=== PATIENT | male | born 1965 | race Caucasian/White ===

== ENCOUNTER 2018-06-17 13:21 | Emergency (ER) | payer OTHER ==
[2018-06-17] MEDS ORDERED: Tetan/Diph/Pertus SYR(Tdap)* 0.5 ML SYR(BOOSTRIX) use SYR IM ONE (13:36)
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
[2018-06-17 13:46] VITALS: BP 110/58
--- NOTE | 2018-06-17 13:58 | RAD ---
Indication: Crush injury distal RIGHT fourth finger. Comparison: No relevant prior exams available on the [facility] for comparison. Technique: 3 views RIGHT fourth finger. REPORT AND IMPRESSION: #. Skin contour irregularity at the tip of the finger consistent with laceration. No conspicuous foreign body evident. Negative for fracture or articular malalignment.
[2018-06-17] MEDS ORDERED: Lidocaine 2% PF * 5 ML VIAL INJ ONE (14:10)
[2018-06-17] MEDS ORDERED: Bupivacaine 0.25% SDV* 30 ML INJ ONE (14:10)
== END 2018-06-17 15:24 | disposition home or self-care (01) ==
LOC: UCCORT 13:21
DX: S67.194A Crushing injury of right ring finger, initial encounter (principal); W31.89XA Contact with other specified machinery, initial encounter; Y93.89 Activity, other specified; Y92.69 Other specified industrial and construction area as the place of occurrence of the external cause; Y99.0 Civilian activity done for income or pay
CPT/HCPCS: 11042; 12001; 73140; 90471; 90715; 99211; G0463

== ENCOUNTER 2018-06-25 18:37 | Emergency (ER) | payer OTHER ==
[2018-06-25 19:02] VITALS: BP 112/61
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
== END 2018-06-25 20:48 | disposition home or self-care (01) ==
LOC: UCCORT 18:37
DX: S61.214D Laceration without foreign body of right ring finger without damage to nail, subsequent encounter (principal); Z85.038 Personal history of other malignant neoplasm of large intestine; Z85.048 Personal history of other malignant neoplasm of rectum, rectosigmoid junction, and anus; Z85.820 Personal history of malignant melanoma of skin

== ENCOUNTER 2019-02-15 20:30 | Emergency (ER) | payer OTHER ==
[2019-02-15 20:44] VITALS: BP 124/72
[2019-02-15] MEDS ORDERED: Amoxicillin/Clavulanate TAB* 875 MG PO ONE (20:51)
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
== END 2019-02-15 20:57 | disposition home or self-care (01) ==
LOC: UCCORT 20:30
DX: H66.92 Otitis media, unspecified, left ear (principal); J32.9 Chronic sinusitis, unspecified
CPT/HCPCS: 99212; A9270-GY; G0463